=== PATIENT | female | born 1950 | race Caucasian/White ===

== ENCOUNTER 2024-03-08 15:33 | Emergency (ER) | payer OTHER, MEDICARE ==
[~2024-03-08] VITALS: Ht 162.6 cm; Wt 76.1 kg
[~2024-03-08 15:33] MED LIST: ADVIL200 MG PO; FOLIC ACID1 MG PO; GABAPENTIN300 MG PO; HYDROCHLOROTHIA25 MG PO; LOSARTAN POTASS50 MG PO; VITAMIN B-121000 MCG PO
[2024-03-08 17:20] VITALS: BP 138/92
== END 2024-03-08 17:20 | disposition home or self-care (01) ==
LOC: ED 15:33
DX: S82.61XA Displaced fracture of lateral malleolus of right fibula, initial encounter for closed fracture (principal); W01.0XXA Fall on same level from slipping, tripping and stumbling without subsequent striking against object, initial encounter; Z79.899 Other long term (current) drug therapy
CPT/HCPCS: 73610; 99283

== ENCOUNTER 2024-03-21 06:30 | Day surgery (SDC) | payer OTHER, MEDICARE ==
[2024-03-15 10:09] VITALS: BP 131/78
[~2024-03-21] VITALS: Ht 165.1 cm; Wt 70.5 kg
[~2024-03-21 06:30] MED LIST changes: +FLONASE ALLERG9.9 ML NAS; +LACTATED RINGER'S 1,000 ML IV SCH; +LOSARTAN-HCTZ1 EACH PO; +NEURONTIN300 MG PO; +TURMERIC500 M3 PO
[2024-03-21] MEDS ORDERED: BUPIVACAINE HCL 0.5% 30 ML VIAL ONE (06:41)
[2024-03-21] MEDS ORDERED: SODIUM CHLORIDE 0.9% 100 ML IV ONE (06:42)
[2024-03-21 06:48] VITALS: BP 143/63
[2024-03-21] MEDS ORDERED: MIDAZOLAM HCL 2 MG/2 ML VIAL ONE (06:51)
[2024-03-21] MEDS ORDERED: DEXAMETHASONE SOD PHOS 4 MG/ML VIAL ONE ×2 (06:59→07:38)
[2024-03-21] MEDS ORDERED: IBLOOD GLUCOSE TEST STRIP 1 EA TEST VI PRN ×2 (07:00→08:15)
[2024-03-21] MEDS ORDERED: TRANEXAMIC ACID 2,000 MG in SODIUM CHLORIDE 0.9% 100 ML IV SCH (07:00)
[2024-03-21] MEDS ORDERED: CEFAZOLIN SODIUM 2 GM/20 ML SYR IV SCH (07:00)
[2024-03-21] MEDS ORDERED: LIDOCAINE HCL 1% 5 ML SDV INJ ONE (07:00)
[2024-03-21] MEDS ORDERED: KETAMINE in NS 50 MG/5 ML SYR ONE (07:38)
[2024-03-21] MEDS ORDERED: propofoL 200 MG/20 ML VIAL ONE (07:38)
[2024-03-21] MEDS ORDERED: ondansetron HCL 4 MG/2 ML VIAL ONE (07:38)
[2024-03-21] MEDS ORDERED: ACETAMINOPHEN 1,000 MG/100 ML VIAL ONE (07:39)
[2024-03-21] MEDS ORDERED: LIDOCAINE HCL 2% 5 ML SDV ONE (07:39)
--- NOTE | 2024-03-21 07:42 | NUR ---
PT NOT AVAILABLE FOR VISIT. PROVIDED PRAYER.
[2024-03-21] MEDS ORDERED: HYDROCODONE/ACETA 5/325 TAB PO PRN (07:45)
[2024-03-21] MEDS ORDERED: ondansetron HCL 4 MG/2 ML VIAL IV PRN (08:15)
[2024-03-21] MEDS ORDERED: NALOXONE HCL 0.4 MG SYR IV PRN (08:15)
[2024-03-21] MEDS ORDERED: PROCHLORPERAZINE EDISYLATE 10 MG/2 ML VIAL IV PRN (08:15)
[2024-03-21] MEDS ORDERED: HYDROCODON-ACE1 EA10 PO (08:16)
--- NOTE | 2024-03-21 08:34 | NUR ---
03/21/24 0834 Mayur Briscoe 0817: PT ARRIVED TO PACU VIA STRETCHER. PT NOT AROUSABLE TO STIMULI AT THIS TIME. PT ON 6L VIA MASK. 0820: CLOCKMAKER AT BEDSIDE. PT REMAINS NON AROUSABLE AND ON 6L VIA MASK WITH SATS AT 100% 0825: PT AROUSABLE TO NAME AND TOUCH. PT REMAINS ON 6L VIA MASK. 0830: PT DROWSY. TITRATED TO RA AT THIS TIME. ICE APPLIED TO RIGHT LEG. SCD'S IN PLACE. DRESSING C/D/I WITH BRACE IN PLACE.
[2024-03-21 08:54] VITALS: BP 122/47
--- NOTE | 2024-03-21 09:04 | NUR ---
GILBERTO 0850-PT BACK TO ROOM FROM PACU ON . RECEIVED REPORT FROM ALONA OLMEDO. RESP EVEN AND UNLABORED. DENIES PAIN. PT TAKING SIPS OF WATER. PROVIDED PT WITH CHACORTA. NO OTHER NEEDS AT THIS TIME. CALL LIGHT WITHIN REACH.
--- NOTE | 2024-03-21 09:25 | NUR ---
PT SITS AT BEDSIDE AND REPORTS NO ONSET OF NAUSEA/DIZZINESS. PT STANDS W/CRUTCHES AND REPORTS NO NAUSEA/DIZZINESS AND USES CRUTCHES APPROPRIATELY. THIS RN ASSISTS PT WITH GETTING DRESSED. DRESSING LOOKS C/D/I, NO SIGNS OF BLEEDING AT THIS TIME. RIDE CALLED, NO ANSWER, BUT IN ROOM AT THIS TIME TO TAKE PT HOME. DISCHARGE EDUCATION PROVIDED, PT REPORTS NO FURTHER QUESTIONS OR NEEDS AT THIS TIME AND STATES VERBAL UNDERSTANDING. PT OFF OF UNIT @0930 TO PASSENGER SEAT OF FAMILY'S VEHICLE. ALL BELONGINGS IN PT POSSESSION AT THIS TIME. PT STATES NO FURTHER QUESTIONS OR NEEDS.
--- NOTE | 2024-03-21 10:43 | OR ---
[facility] [address] [place], [place] [address] Signed DATE OF OPERATION: 03/21/2024 SURGEON: Radha Reyes MD PREOPERATIVE DIAGNOSIS: Displaced right lateral malleolus fracture. POSTOPERATIVE DIAGNOSIS: Displaced right lateral malleolus fracture. PROCEDURE PERFORMED: Open reduction and internal fixation, right lateral malleolus. MECHANICAL MAINTENANCE: None. ANESTHESIA: Spinal. BLOOD LOSS: 50 mL. IMPLANTS: 3 x 130 FibuLock with two locking screws. BRIEF HISTORY: Karen is a 73-year-old female, who suffered an ankle fracture. This was more displaced on presentation to the office than it was initially. Because of her active lifestyle, we discussed operation with a FibuLock so that she can weightbear on it in two weeks. She wished to proceed with this. Risks, benefits, and alternatives of surgery were discussed with her and she elected to proceed. PROCEDURE IN DETAIL: Once consent was obtained, she was taken to the operating room. After adequate anesthesia, she was placed on the operating table. Hip bump was placed on the right. The leg was prepped and draped in a standard sterile fashion. A 1 cm incision was made distal to the tip of the fibula. The initial guide pin for the FibuLock itself was then advanced from the center position of the fibula across the fracture engaging the body of the fibula. This was then overdrilled using the large reamer. This was then exchanged for the long guide melba, which was advanced up to fibula to the top. This was then Electronically Signed By: RAHDA REYES MD 03/21/24 1043 PATIENT NAME: KAREN HARKINS OPERATIVE REPORT DATE OF : 52 REPORT #: [id number] PHYSICIAN: RADHA REYES MD PCP: EWA HERNÁNDEZ PAC REPORT IS CONFIDENTIAL AND NOT TO BE RELEASED WITHOUT AUTHORIZATION [facility] [address] [place], [place] [address] Signed overreamed using the 3.2 reamer. The 3 x 130 FibuLock was then obtained, placed on the insertion handle. It was then inserted from the tip of the fibula across the fracture. The fracture had been reduced and clamped with a bony tenaculum. The melba was then placed until it was well-seated inside the tip of the fibula. The proximal fins for the FibuLock were then deployed. Once this was completed, two distal interlocking screws one straight lateral, one anterior lateral were placed. These were done through separate stab incisions. The final radiograph showed the anatomic reduction of the fracture, intramedullary placement of the melba and adequate screw lengths. The wounds were cleansed with normal saline, closed with hector. They were dressed with Allevyn dressing and an Isaiah wrap. She tolerated the procedure well. All sponge, needle, and instrument counts were correct. Radha Reyes MD BA/RICOL /[id number] Copies: ~ Electronically Signed By: RADHA REYES MD 03/21/24 1043 PATIENT NAME: KAREN HARKINS OPERATIVE REPORT DATE OF : 52 REPORT #: [id number] PHYSICIAN: RADHA REYES MD PCP: EWA HERNÁNDEZ PAC REPORT IS CONFIDENTIAL AND NOT TO BE RELEASED WITHOUT AUTHORIZATION
== END 2024-03-21 09:30 | disposition home or self-care (01) ==
LOC: DS 06:30
PROVIDERS: ATTEND Specialist
PROC: 0QSJ04Z Reposition Right Fibula with Internal Fixation Device, Open Approach (ICD-10-PCS; principal; 2024-03-21 08:05)
DX: S82.61XA Displaced fracture of lateral malleolus of right fibula, initial encounter for closed fracture (principal); I10 Essential (primary) hypertension; M19.90 Unspecified osteoarthritis, unspecified site; Z79.899 Other long term (current) drug therapy; W01.0XXA Fall on same level from slipping, tripping and stumbling without subsequent striking against object, initial encounter
CPT/HCPCS: 01480; 64447; 73600; 76942; C1713; C1769; J0131; J0690; J1100; J2001; J2250; J2405; J2704; J3490; J7121